=== PATIENT | male | born 1955 | race Caucasian/White ===

== ENCOUNTER 2022-07-06 12:04 | Emergency (ER) | payer MEDICARE, SELFPAY | END 2022-07-06 15:02 | LOC: NAV ERS 12:04 | DX: S43.51XA Sprain of right acromioclavicular joint, initial encounter (principal); I95.9 Hypotension, unspecified; E78.5 Hyperlipidemia, unspecified; K21.9 Gastro-esophageal reflux disease without esophagitis; G62.9 Polyneuropathy, unspecified; Z79.82 Long term (current) use of aspirin; Z79.899 Other long term (current) drug therapy; W19.XXXA Unspecified fall, initial encounter ==

== ENCOUNTER 2022-08-03 14:36 | Emergency (ER) | payer MEDICARE, BC ==
[2022-08-03] MEDS ORDERED: Acetaminophen 325 MG TAB ONE (15:17)
== END 2022-08-03 16:02 ==
LOC: NAV ERS 14:36
DX: M24.411 Recurrent dislocation, right shoulder (principal); M17.11 Unilateral primary osteoarthritis, right knee; K21.9 Gastro-esophageal reflux disease without esophagitis; E78.5 Hyperlipidemia, unspecified; Z79.899 Other long term (current) drug therapy; W19.XXXA Unspecified fall, initial encounter

== ENCOUNTER 2023-03-17 14:41 | Emergency (ER) | payer MEDICARE, OTHER | END 2023-03-17 16:37 | disposition home or self-care (01) | LOC: NAV ERS 14:41 | DX: S00.83XA Contusion of other part of head, initial encounter (principal); S40.022A Contusion of left upper arm, initial encounter; W18.30XA Fall on same level, unspecified, initial encounter; K21.9 Gastro-esophageal reflux disease without esophagitis; E78.5 Hyperlipidemia, unspecified; Z86.73 Personal history of transient ischemic attack (TIA), and cerebral infarction without residual deficits; Z79.82 Long term (current) use of aspirin; Z79.899 Other long term (current) drug therapy | CPT/HCPCS: 70450; 70486; 72125 ==

== ENCOUNTER 2023-10-30 22:33 | Emergency (ER) | payer MEDICARE, OTHER ==
[2023-10-30] MEDS ORDERED: Lidocaine 1% (PF) 30 ML VIAL ONE (22:49)
[2023-10-31] MEDS ORDERED: Boostrix 0.5 ML (Tdap) VIAL (>/=7 yrs of age) ONE (00:19)
== END 2023-10-31 01:00 ==
LOC: NAV ERS 22:33
DX: S01.81XA Laceration without foreign body of other part of head, initial encounter (principal); S09.90XA Unspecified injury of head, initial encounter; K21.9 Gastro-esophageal reflux disease without esophagitis; Z23 Encounter for immunization; Z79.899 Other long term (current) drug therapy; W18.30XA Fall on same level, unspecified, initial encounter
CPT/HCPCS: 12011; 70450; 72125; 90471; 90715; J2001